=== PATIENT | female | born 1955 | race Caucasian/White ===

== ENCOUNTER → 2024-07-10 15:23 | Outpatient (CLI) | payer MEDICARE, SELFPAY ==
--- NOTE | 2024-07-10 15:30 | DI.MRI.S_ITS ---
MR breast BI wo/w con: 07/10/2024. BI-RADS: 6 CLINICAL: 69-year old female for bilateral diagnostic breast MRI. No Tyrer-Cuzick risk score calculation due to the patient's personal history of breast cancer. Patient reports a history of right breast carcinoma diagnosed at age 61. Current reported family history of breast cancer: sister. PRIOR EXAMS Ultrasound 06/29/2024. Mammograms 06/29/2024, 05/27/2024, 08/07/2022, 04/10/2019. MRI TECHNIQUE Bilateral breast MRI was performed on a 1.5 Tenisha magnet using a dedicated breast coil with mild compression. Axial T1 and T2 STIR sequences were obtained. Dynamic contrast enhanced VIBRANT fat-suppressed sequences were obtained. Delayed sagittal high resolution or sagittal reconstructed isotropic sequence was also obtained. Subtraction images and maximum intensity projection images were obtained. The study was evaluated using [employer] software. Gadavist was injected intravenously: mL. IV Contrast: 20 ml ProHance. FIBROGLANDULAR TISSUE Bilateral: B. Scattered fibroglandular tissue. BACKGROUND PARENCHYMAL ENHANCEMENT Bilateral: Mild symmetrical background parenchymal enhancement. BREAST FINDINGS Right: Upper Outer at 10:00, (Sagittal S:15/I:74), (Axial S:12/I:74), Middle depth, measuring 2.4 x 2.2 x 2 cm: Correlating with area of biopsy there is an irregularly shaped, spiculated enhancing mass with kinetic enhancement curve showing slow initial phase and persistent pattern on delayed phase. No axillary adenopathy. Right: Correlating with surgery site there is a non-enhancing postoperative change present. On non-contrast sequences this shows high signal intensity on T1-weighted sequences and high signal intensity on STIR/T2-weighted sequences. Left: No suspicious mass, suspicious non-mass enhancement, or other concerning finding identified. IMPRESSION: Right (Mass): Upper Outer at 10:00, (Sagittal S:15/I:74), (Axial S:12/I:74), Middle depth, measuring 2.4 x 2.2 x 2 cm * Known Biopsy-Proven Malignancy. Left * No evidence of malignancy. RECOMMENDATIONS Right * Recommend appropriate surgical/oncological treatment of known breast cancer. OVERALL ASSESSMENT CATEGORY BI-RADS-6: Known Biopsy-Proven Malignancy. ELECTRONICALLY SIGNED: Flo Crawford M.D. on 07/13/2024 at 02:10:58 PM PT Interpreting Station ID: [id number]
== END ==
PROVIDERS: PCP Student in an Organized Health Care Education/Training Program; Referring Provider Student in an Organized Health Care Education/Training Program; Visit Provider Student in an Organized Health Care Education/Training Program
DX: C50.411 Malignant neoplasm of upper-outer quadrant of right female breast (principal); Z17.0 Estrogen receptor positive status [ER+]; Z85.3 Personal history of malignant neoplasm of breast; Z80.3 Family history of malignant neoplasm of breast
CPT/HCPCS: 77049; A9579